=== PATIENT | female | born 1985 | race Caucasian/White ===

== ENCOUNTER 2016-11-16 16:10 | Day surgery (SDC) | payer MEDICAID ==
--- OUTSIDE RECORDS SUMMARY | 2016-11-16 16:12 | XMS | Clinical Summary ---
:1985 Author Organization [facility] Address [address] [place] [address] Phone Care Team Providers Name Role Phone , Primary Care Provider Unavailable Allergies Not on File Current Medications Not on file Active Problems Not on file Social History Tobacco Use Types Packs/Day Years Used Date Never Assessed Sex Assigned at Date Recorded Not on file Last Filed Vital Signs Not on file Plan of Treatment Not on file Results Not on filefrom Last 3 Months
[2016-11-16 16:43] VITALS: BMI 44.9
[2016-11-16] MEDS ORDERED: Promethazine HCl 25 MG/ML VIAL IM/IV PRN (17:14)
[2016-11-16] MEDS ORDERED: Lactated Ringer's 1,000 ML IV SCH (17:15)
[2016-11-16] MEDS ORDERED: cefTRIAXone Sodium 2,000 MG in Syringe 0 ML IVPB SCH (17:30)
[2016-11-16] MEDS ORDERED: cefTRIAXone\\ROCEPHIN 2 GM in Sodium Chloride 0.9% 100 ML IVPB SCH (18:00)
--- NOTE | 2016-11-16 19:04 | ULT ---
RENAL SONOGRAM: 11/16/16 HISTORY: 23-week . Patient has right renal colic. FINDINGS: Images demonstrate a normal sonographic appearance bilaterally without evidence of renal mass, renal calculus, or hydronephrosis. The right kidney measures 11.7 cm x 5.1 cm with the left kidney measur ing 10.6 cm x 5.3 cm. No perinephric fluid collection is seen. Urinary bladder is partially distended and demonstrates a normal sonographic appearance. Color flow evaluation demonstrates presence of ureteral jets bilaterally. Urinary bladder has a normal sonograp hic appearance. IMPRESSION: 1. Normal appearing bilateral kidneys without evidence of hydronephrosis. 2. Urinary bladder is incompletely distended does have a normal sonographic appearance and each ureteral jet is visualized. POS: MORIAH
--- NOTE | 2016-11-16 19:05 | ULT ---
URINARY BLADDER ULTRASOUND: 11/16/16 FINDINGS/IMPRESSION: Please see renal sonogram report for further details and description of the urinary bladder. POS: MORIAH
--- NOTE | 2016-11-16 19:10 | PRG ---
DATE OF SERVICE: 11/16/2016 TIME OF EVALUATION: 1700 hours. REASON FOR EVALUATION: This is a patient who has sent from the [facility] for suspected right renal colic. She has a private physician in [place], [place]. HISTORY OF PRESENT ILLNESS: In brief, this is a 30-year-old 1, para 0, who was diagnosed with renal stones in 2014, who presented to the [facility] with a right-sided flank pain extending down to the groin. She denies fevers, vaginal bleeding or rupture of membranes. She denies contractions. She has good fe leigh movement. She denies diabetes or high blood pressure. She has denied any other compli cations. It is important to note that she has a history of renal stones first diagnosed in 2014, bu t she has never required any intervention for them (no prior stents). She was evaluated by Dr. Maury espinosa, emergency room physician at [facility]. I spoke with Dr. Mack on the phone through the transfer center at approximately 1420 hours when she was there in evaluation. According to her evaluation, t here was no evidence of labor and had a consistent story with a renal colic episode. Her ge stational age is 23 weeks and 4 days by second trimester ultrasound. Her EDC is 03/18/2017. REVIEW OF SYSTEMS: Review of system is otherwise negative unless specified in the HPI. PAST MEDICAL HISTORY: Negative for diabetes or chronic hypertension. She does have a history of re nal stones, first diagnosed in 2014. PAST SURGICAL HISTORY: 1. She had ear tubes placed as a child. 2. Gastric sleeve in 2011. 3. Ovarian cyst removal. 4. 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 OB HISTORY: She is a G1, P0. ALLERGIES: None. On lab assessment from [facility], UA (voided) does show large blood. No squamous cells. Nitrites w ere negative, but she did have 1+ bacteria. Dr. Mack assumed this was contamination rather than tr ue UTI. Complete metabolic profile was obtained and reviewed. Creatinine is normal. AST and ALT a re also normal. Her white blood cell count is 9 with normal hematocrit of 35. This was from the [facility] ER. PHYSICAL EXAMINATION: She is afebrile and normotensive. Blood pressure was 98/52 in the [facility] ER with pulse 66, O2 sat i s normal on room air. Doppler heart tones are in the 140s. She is in no acute distress. Abdomen i s gravid/obese. There is no evidence of palpable contractions on exam. There is no evidence of vag inal bleeding or rupture of membranes grossly. Cervical exam was currently deferred. There was no costovertebral angle tenderness. NONSTRESS TEST: Although the child was placed on the monitor for tracking of the heart tones, a nonstress test was not ordered as she is at 23 weeks and 4 days by second trimester ultrasound. Her EDC is 03/18/2017. LABS ORDERED: I have not ordered repeat labs that she had them earlier in [facility]. INTERVENTIONS ORDERED. I have ordered IV fluid hydration, Flomax for possible renal colic, and morp anthony sulfate for pain control. I have also ordered a right renal ultrasound to look for renal calcu li and bladder ultrasound to look for ureteral jets. ASSESSMENT: This is a 30-year-old G1, P0 with a history of renal stones in the past, who presents n ow with right colicky pain concerning for renal colic. She is afebrile and there is no evidence of pyelonephritis at this time. PLAN: 1. Interventions pending as ordered. 2. Renal ultrasound and bladder jets pending. 3. No evidence of pyelonephritis at this time. 4. Although there is no evidence of pyelonephritis, I will administer 1 gram of Rocephin as she did have 1+ bacteria on urine, although this was a voided specimen and not catheterization. We will ad strings teacher Rocephin IV x1 empirically to cover for any possible infection. This will be a 2 gram of R ocephin dose IV x1. 5. Await ultrasound report.
--- NOTE | 2016-11-16 21:59 | PRG ---
DATE OF SERVICE: 11/16/2016 TIME: 1925 hours. TIME OF EVALUATION: 1910 hours. FOLLOWUP NOTE In brief, I talked to the electrical mechanical technician who performed a renal ultrasound on this patient. T he right renal ultrasound showed no evidence of hydronephrosis or stone. There was no evidence of o bstruction as the bladder jet was seen bilaterally. She was still afebrile. She states that she fe els better after hydration and after morphine sulfate. We did also administer Rocephin as prophylac tic therapy again superinfection of the stone. As she was clinically stable and no evidence of pret erm labor exists, we have elected to send her home. I did perform a cervical examination at 1915 ho urs and found her to be closed, thick, and high with no evidence of rupture or vaginal bleeding. I will send her home on a prescription on Macrobid 100 mg one p.o. b.i.d. for 7 days to prevent superi nfection of any undiagnosed stone. At this time, there is no evidence of or maternal need for admission.
[2016-11-17] MEDS ORDERED: Tamsulosin HCl 0.4 MG CAP PO SCH (09:00)
== END 2016-11-16 20:22 | disposition home or self-care (01) ==
LOC: L&D/OP 16:10
PROVIDERS: ATTEND Obstetrics & Gynecology
DX: O99.89 Other specified diseases and conditions complicating pregnancy, childbirth and the puerperium (principal); R10.84 Generalized abdominal pain; Z79.899 Other long term (current) drug therapy; Z98.890 Other specified postprocedural states; Z3A.23 23 weeks gestation of pregnancy; Z87.442 Personal history of urinary calculi
CPT/HCPCS: 76775; 76856; 96360; 96361; 96366; 96375; J0696; J2270; J2550; J7050